=== PATIENT | female | born 1985 | race Hispanic/Latino ===

== ENCOUNTER 2024-06-09 13:42 | Emergency (ER) | payer SELFPAY ==
[2024-06-09] VITALS (11 sets, daily range): BP systolic 90–117; BP diastolic 43–60
[~2024-06-09] VITALS: Ht 157.5 cm; Wt 52.0 kg
[2024-06-09] MEDS ORDERED: DIATRIZOATE MEGLUMINE & SODIUM 30 ML/BTL PO ONE (15:15)
[2024-06-09] MEDS ORDERED: ISOVUE-300 (Iopamidol) 100 ML SDV IV ONE (15:15)
[2024-06-09] MEDS ORDERED: KETOROLAC TROMETHAMINE 30 MG/ML SDV IV ONE (15:15)
[2024-06-09] MEDS ORDERED: SODIUM CHLORIDE 0.9% 1,000 ML IV ONE (15:15)
[2024-06-09 15:37] LABS: URINE BILIRUBIN - DIPSTICK Negative (NEGATIVE); URINE BLOOD DIPSTICK Small (NEGATIVE); URINE GLUCOSE - DIPSTICK Negative (NEGATIVE); URINE KETONE Negative (NEGATIVE); URINE LEUK ESTERASE Negative (NEGATIVE); URINE NITRITE - DIPSTICK Negative (Negative); URINE PROTEIN - DIPSTICK Negative (NEG-TRACE)
[2024-06-09 15:39] LABS: URINE COLOR Yellow
[2024-06-09 15:44] LABS: URINE SQUAMOUS EPITHELIAL CELL FEW EPI/hpf (0-FEW); URINE WBC 0-2 WBC/hpf (0-5)
[2024-06-09 16:36] LABS: EOS% 5.5 % (0-8); HEMATOCRIT 22.8 % (37.0-47.0); HEMOGLOBIN 7.3 g/dl (12.0-16.0); IMMATURE GRANULOCYTES 0.3 % (0.0-5.0); LYMPH% 45.3 % (15-41); MEAN CELL VOLUME 117.5 fL CALC (80.0-100.0); MEAN CORPUSCULAR HGB 37.6 pG CALC (26.0-32.0); MONO% 3.4 % (2-13); NEUT# 1.73 thou/uL (2.00-7.15); NEUT% 45.5 % (42-76); RED BLOOD COUNT 1.94 mill/uL (4.20-5.60); RED CELL DISTRI WIDTH 23.8 % (11.5-15.5)
[2024-06-09 16:48] LABS: ALBUMIN 3.9 g/dL (3.2-5.0); BILIRUBIN, TOTAL 1.4 mg/dL (0.02-1.3); CREATININE 0.5 mg/dL (0.5-1.0); TOTAL PROTEIN 6.8 g/dL (6.3-8.2)
[2024-06-09] MEDS ORDERED: MIRALAX17 GM PO (20:31)
[2024-06-09] MEDS ORDERED: FERROUS SULFAT325 MG PO (20:31)
[2024-06-09] MEDS ORDERED: DICYCLOMINE HYD10 MG PO (20:32)
== END 2024-06-09 21:17 | disposition home or self-care (01) | DRG 392 ==
LOC: ED 13:42
PROVIDERS: Nurse Practitioner
DX: R10.30 Lower abdominal pain, unspecified (principal); K59.09 Other constipation; D64.9 Anemia, unspecified
CPT/HCPCS: Q9967

== ENCOUNTER 2024-09-08 13:57 | Emergency (ER) | payer OTHER ==
[~2024-09-08] VITALS: Ht 157.5 cm; Wt 49.8 kg
[2024-09-08] VITALS (9 sets, daily range): BP systolic 80–106; BP diastolic 34–66
[~2024-09-08 13:57] MED LIST: DICYCLOMINE HYD10 MG PO; FERROUS SULFAT325 MG PO; MIRALAX17 GM PO
[2024-09-08 15:21] LABS: URINE BLOOD DIPSTICK Trace-intact (NEGATIVE); URINE COLOR Yellow; URINE GLUCOSE - DIPSTICK Negative (NEGATIVE); URINE KETONE Trace mg/dL (NEGATIVE); URINE LEUK ESTERASE Negative (NEGATIVE); URINE NITRITE - DIPSTICK Negative (Negative); URINE PH 5.5 (4.5-8.0); URINE PROTEIN - DIPSTICK 100 mg/dL (NEG-TRACE); URINE SPECIFIC GRAVITY >=1.030
[2024-09-08 15:24] LABS: URINE BACTERIA MANY hpf
[2024-09-08 15:25] LABS: URINE SQUAMOUS EPITHELIAL CELL MANY EPI/hpf (0-FEW)
[2024-09-08] MEDS ORDERED: BACTRIM DS1 TAB PO (15:31)
[2024-09-08] MEDS ORDERED: SULFAMETHOXAZOLE W/TRIMETHOPRI 1 COMBO TAB PO ONE (15:35)
== END 2024-09-08 16:15 | disposition home or self-care (01) | DRG 690 ==
LOC: ED 13:57
PROVIDERS: Emergency Medicine
DX: N39.0 Urinary tract infection, site not specified (principal); B96.20 Unspecified Escherichia coli [E. coli] as the cause of diseases classified elsewhere